=== PATIENT | male | born 1980 | race Hispanic/Latino ===

== ENCOUNTER 2016-12-02 14:06 | Outpatient (CLI) | payer OTHER ==
--- NOTE | 2016-12-02 14:38 | Cat Scan Report ---
CT HEAD WITHOUT CONTRAST: HISTORY: Chronic headaches. Serial contiguous axial images were obtained through the cranium. Intravenous contrast material was not administered. The ventricles are normal in size and appearance. There is no mass effect or midline shift. No areas of abnormally increased or decreased attenuation are seen. No mass lesion is seen. The mastoid air cells and visualized portions of the sinuses are normal. IMPRESSION: Normal CT brain.
== END 2016-12-02 14:07 | disposition home or self-care (01) ==
LOC: CT 14:06
PROVIDERS: ATTEND Internal Medicine
DX: R51 Headache (principal)
CPT/HCPCS: 70450